=== PATIENT | female | born 1935 | race Caucasian/White ===

== ENCOUNTER 2022-08-29 11:19 | Inpatient (IN) | payer OTHER, MEDICARE ==
[2022-08-29 11:52] LABS: Absolute Lymphocytes (CBC) 20.9 K/uL (0.7-4.9); Lymphocytes % 59.2 % (15.3-44.8); MCV 98.2 fL (80-100); MPV 8.8 fL (7.6-11.3); RBC Red Blood Cell Count 4.68 M/uL (3.86-4.86)
[2022-08-29 11:56] LABS: Protime INR 1.15
[2022-08-29 12:23] LABS: Potassium 4.4 mmol/L (3.5-5.1)
[2022-08-29 12:27] LABS: Troponin High Sensitivity 197.1 pg/mL (<58.9)
[2022-08-29 12:33] LABS: Blood Morphology Comment NOT SEEN (NOT SEEN); Platelet Estimate ADEQ
[2022-08-29 12:41] LABS: SARS-CoV-2 Antigen Rapid Res Negative (Negative)
--- NOTE | 2022-08-29 13:09 | RAD REPORT ---
EXAM DESCRIPTION: CT - Head C Spine Cap Ja Cornejo - 08/29/2022 12:48 pm CLINICAL HISTORY: trauma, fall with head and facial trauma, neck pain, chest pain and abdomen pain COMPARISON: <Comparisons> TECHNIQUE: Axial [address] head images were obtained. Axial [address] cervical spine images were obtaine d with sagittal and coronal reconstruction images reviewed. During dynamic enhancement of 100mL non-i onic contrast, axial 5 mm images of the chest, abdomen and pelvis were obtained. Biphasic technique p erformed of the abdomen and pelvis. Oral contrast: None All CT scans are performed using dose optimization technique as appropriate and may include automated exposure control or mA/KV adjustment according to patient size. FINDINGS: No intracranial hemorrhage, mass or edema. No midline shift or abnormal fluid collection. Mild for age atrophy and chronic ischemic change. Ventricles are in proportion. Arterial and physiolo gic calcifications are present. Mastoid air cells are clear. No skullbase fracture seen. No skull fra cture. Facial bones, orbits and sinuses are separately detailed. Moderate size scalp hematoma seen l eft-side of the skull. No underlying bone injury. Advanced degenerative changes are present at the dens -C1 level. Transverse ligament posterior to the dens is thickened and partially mineralized. Several degenerative cysts are clustered at the base of the dens, largest 7 mm in size. The large cyst has a thinned posterior cortex at the base of the den s. A fracture is not confirmed. Anterior subluxation of C7 on T1 is present secondary to facet degene rative change. All cervical disc levels except C2-3 show significant loss in disc height. Prominent e ndplate spurs are present at C5-6 and C6-7. Multilevel facet joint degenerative change seen with mult ilevel bony foraminal stenosis. No other alignment abnormalities. Paraspinal hematoma is not seen. Th ere is some congestion and edema in the subcutaneous fat on the left. There are numerous bilateral ce rvical lymph nodes present more pronounced on the left. No malignant history is known for the patient . A pharyngeal origin mass is not seen. Adenopathy extends into the left base the neck and supraclavi cular region. Concerns for traumatic disc herniation or traumatic cord injury can be further addresse d with MR imaging. Small nodules are seen in the thyroid gland without of the mass in. CT chest shows no pneumothorax, pulmonary contusion or pleural fluid collection. No mediastinal hemat henry and the aorta and pulmonary arteries are unremarkable. No chest wall mass. No fracture of the john rnum seen. There are no displaced rib fracture is present and no nondisplaced rib fractures suspected . Patient has a large hiatal hernia approximately 50% of the stomach intrathoracic. Abnormal pathologic appearing right axillary lymph nodes are present. A small number of lymph nodes s een in the left axilla. No acute traumatic injury to the liver, spleen or pancreas. Splenomegaly is present. Gallbladder is a bsent. No abnormal degree of biliary tree dilatation. Fullness of the biliary tree is within range of normal for a post cholecystectomy patient. Left-sided parapelvic cysts are present. There is a large staghorn calculus filling and enlarging the right collecting system. There is mild dilatation throug hout the course of the right ureter without obstructing calculus seen. Espinosa catheter is present in t he urinary bladder which is partially filled. There is intermediate density material layering along t he dependent portion of the urinary bladder. This could be hemorrhagic material. Mass is possible but lesser in likelihood. No bladder wall thickening is suspected. No acute bowel finding seen. Moderate stool volume dilates the rectum to 7 cm. Advanced bony degenerative changes are present. Significant left convex lumbar scoliosis is present. An acute pelvic or vertebral body finding is not seen. No fracture of either proximal femur. No significant vascular finding. IMPRESSION: No hemorrhage or other acute intracranial finding identifiable. Moderate size scalp aaliyah sandra seen on the left. Facial bones, orbits and sinuses are separately detailed. Advanced degenerative changes are present involving the dens and adjacent structures but no fracture of the dens or C2 body confirmed. Overall prominent cervical spine degenerative change with no acute bone abnormality. Pathologic lymphadenopathy is present in the neck and bilateral axilla. No malignant history is known for this patient though findings are concerning for lymphoma or other neoplastic process. No acute traumatic injury to the chest. No acute traumatic injury to the abdomen or pelvis. Right-sided hydronephrosis is present without an obstructing calculus. There is a large right-sided staghorn calculus. Intermediate density material l pretty along the posterior or dependent portion of the urinary bladder. This could be hemorrhagic mate rial. A mass is unlikely but not entirely excluded. Espinosa catheter is in place. Advanced degenerative changes to the spine without acute finding seen. No pelvic or proximal femur fr acture.
--- NOTE | 2022-08-29 13:11 | RAD REPORT ---
EXAM DESCRIPTION: CT - Facial Bones W/ Mpr - 08/29/2022 12:47 pm CLINICAL HISTORY: Fall, face and left-sided skull injury. COMPARISON: CT trauma grams same date TECHNIQUE: Axial 2 millimeter thick images of the facial bones were obtained with sagittal and coron al reconstruction imaging. All CT scans are performed using dose optimization technique as appropriate and may include automated exposure control or mA/KV adjustment according to patient size. FINDINGS: Mandible is intact. Condyles are normally positioned. Mastoid air cells are clear with no skullbase fracture seen. No acute paranasal sinus finding. Globes and orbital contents are normal. Fa cial bone fracture is not seen. Left-sided scalp hematoma is present over the partially imaged. Under lying bone is intact. Pathologic lymphadenopathy is not seen further detailed on the CT trauma report . IMPRESSION: No facial bone fracture. Please see significant additional findings on CT trauma report.
[2022-08-29] MEDS ORDERED: NA CHLORIDE 0.9% 1,000 ML ONE (13:17)
--- NOTE | 2022-08-29 13:32 | ER ---
Nurse's Notes [facility] Name: Cesia Ayers Age: 86 yrs Sex: Female : 1935 Arrival Date: 08/29/2022 Time: 11:23 Bed 16 Private MD: Diagnosis: Rhabdomyolysis;Mechanical fall, scalp hematoma, facial contusions Presentation: 08/29 11:29 Chief complaint: EMS states: client had an unwitnessed fall last night at about 8pm and kc6 was just found 30min ago. no blood thinners, client denies LOC. Care prior to arrival: None. Mechanism of Injury: Fall from standing position. fell to the floor. Trauma event details: Injury occurred in the [facility], Injury occurred: at home. Injury occurred: August 28, 2022 Injury occurred at: 20:00. 11:29 Acuity: EDVIN 1 kc6 11:29 Method Of Arrival: EMS: [place] [facility] [place] 11:44 Ebola Screen: No symptoms or risks identified at this time. Initial Sepsis Screen: Does kc6 the patient meet any 2 criteria? Altered Mental Status. No. Patient's initial sepsis screen is negative. Does the patient have a suspected source of infection? No. Patient's initial sepsis screen is negative. Risk Assessment: Do you want to hurt yourself or someone else? Patient reports no desire to harm self or others. Onset of symptoms was August 28, 2022 at 20:00. 14:43 Coronavirus screen: At this time, the client does not indicate any symptoms associated kc6 with coronavirus-19. Trauma Activation: Alert Physician: ED Physician; Name: Dr. Mckeon; Notified At: ; Arrived At: Physician: General Surgeon; Name: ; Notified At: ; Arrived At: Physician: Radiology; Name: ; Notified At: ; Arrived At: Physician: Respiratory; Name: ; Notified At: ; Arrived At: Physician: Lab; Name: ; Notified At: ; Arrived At: Historical: - Allergies: 11:44 No Known Allergies; kc6 - Home Meds: 12:08 folic acid 1 mg oral tab [Active]; atorvastatin 40 mg oral tab [Active]; methimazole 5 kc6 mg oral tab [Active]; - PMHx: 12:06 Hyperthyroidism; Hypercholesterolemia; TIA; CLL; kc6 - PSHx: 12:06 Cholecystectomy; hysterectomy; back surgery; kc6 - Immunization history: Last tetanus immunization: unknown. - Social history:: Smoking status: Patient denies any tobacco usage or history of. Screenin:43 Abuse screen: Denies threats or abuse. Denies injuries from another. Tuberculosis kc6 screening: No symptoms or risk factors identified. 12:09 [facility] ED Fall Risk Assessment (Adult) History of falling in the last 3 months, kc6 including since admission Yes- single mechanical fall (1 pt) Confusion or Disorientation Yes (5 pts) Intoxicated or Sedated No (0 pts) Impaired Gait Yes (1 pt) Mobility Assist Device Used Yes (1 pt) Altered Elimination Yes (1 pt) Score/Fall Risk Level 3 or more points = High Risk Oriented to surroundings, Maintained a safe environment, Educated pt \T\ family on fall prevention, incl call for assistance when getting out of bed, Assessed \T\ reinforced patient's understanding of fall precautions, Provided non-skid footwear, Hourly rounding (assess needs \T\ fall precautionary measures) done, Used ambulatory aids as needed (educated on \T\ assisted with), Used gait belt as appropriate Implemented a Fall Risk Plan of Care, Apply high fall risk patient identification: yellow non skid footwear/ fall signage, Placed fall mat w/ non beveled edge next to bed, Activated bed/chair alarm, Remained with patient while ambulating, Utilized family, sitter, or virtual economic specialist as indicated. Nutritional screening: No deficits noted. Primary Survey: 11:37 NO uncontrolled hemorrhage observed. Breathing/Chest: Spontaneous respiratory effort, kc6 equal unlabored respirations, breath sounds clear bilaterally, regular pattern, symmetrical chest rise and fall. Respiratory effort: spontaneous, unlabored, Breath sounds: clear, bilaterally. Respiratory pattern: regular, Chest inspection: symmetrical rise and fall of the chest. Circulation: No external hemorrhage present. Regular and strong central pulse, skin warm/dry/normal color. Hemorrhage: No external hemorrhage noted. Pulses: Skin color: pink, Skin temperature: warm, dry, Cardiac rhythm: sinus rhythm Heart tones present. Disability Pupils are equal, round, reactive to light and accommodation. Client is alert. Client responds to verbal stimuli. Client reponds to painful stimuli. Exposure/Environment: All clothing and personal items were removed. There is no evidence of uncontrolled external bleeding. No obvious injuries are noted at this time. A warming method has been applied: A warm blanket has been provided to the patient. 12:15 Reassessment Alertness and Airway: Awake and alert. The airway is patent. Airway Patent kc6 Breathing: Spontaneous respiratory effort, equal unlabored respirations, breath sounds clear bilaterally, regular pattern with symmetrical chest rise and fall. Respiratory effort Spontaneous Unlabored Breath sounds Clear Respiratory pattern Regular Chest inspection Symmetrical Circulation: No external hemorrhage noted. Regular and strong central pulse, skin warm/dry/normal color. Heart rhythm Sinus rhythm Heart tones Present Color [place] Temperature Warm Dry Disability: Pupils Pupils are equal, round, reactive to light and accomodation. Alert Verbal stimuli Painful stimuli. Secondary Survey: 11:40 HEENT: Face Other bruising and redness noted to the left face, chin, and neck. Nose: kc6 dried blood noted to the left nare.. Gastrointestinal: No deficits noted. : No signs and/or symptoms were reported regarding the genitourinary system. Musculoskeletal: No signs and/or symptoms reported regarding the musculoskeletal system. Assessment: 11:32 General: Appears in no apparent distress. comfortable, Behavior is calm, cooperative, kc6 appropriate for age. General: Smells of stale urine. Pain: Denies pain. Neuro: Goncalves Agitation-Sedation Scale (RASS): 0 - Alert and Calm Level of Consciousness is awake, alert, obeys commands, Oriented to person, place. EENT: Sclera/Cornea are reddened in outer aspect of conjuctiva of right eye, inner aspect of conjuctiva of right eye, outer aspect of conjuctiva of left eye and inner aspect of conjunctiva of left eye Nares dried blood noted to the left nare.. Cardiovascular: Heart tones S1 S2 present Capillary refill < 3 seconds. Respiratory: Airway is patent Trachea midline Respiratory effort is even, unlabored, Respiratory pattern is regular, symmetrical, Breath sounds are clear bilaterally. GI: No signs and/or symptoms were reported involving the gastrointestinal system. : No signs and/or symptoms were reported regarding the genitourinary system. Derm:. Derm: Skin has skin tears on left side of the face, chin, and neck as well as the BARRIE knees. Skin is dry, Skin is normal, Skin temperature is warm. Musculoskeletal: No signs and/or symptoms reported regarding the musculoskeletal system. Circulation, motion, and sensation intact. Capillary refill < 3 seconds, Range of motion: intact in all extremities. 11:47 Reassessment: cleansed patient of urine soaked clothes and placed into a clean gown and ss brief. Side rails up x 2. Pt tolerated well. Awaiting CT. 12:35 Reassessment: Patient appears in no apparent distress at this time. No changes from kc6 previously documented assessment. Patient and/or family updated on plan of care and expected duration. Pain level reassessed. client is alert and oriented to person and place but not time and situation. respiration even and unlabored. skin is warm, dry, and pink. Patient denies pain at this time. 13:35 Reassessment: Patient appears in no apparent distress at this time. No changes from kc6 previously documented assessment. Patient and/or family updated on plan of care and expected duration. Pain level reassessed. client is alert and oriented to person and place but situation and time. respirations even and unlabored. skin is warm, dry, and pink. Patient denies pain at this time. 14:27 Reassessment: Turner Ayers(son) [phone]. jd3 14:35 Reassessment: Patient appears in no apparent distress at this time. No changes from kc6 previously documented assessment. Patient and/or family updated on plan of care and expected duration. Pain level reassessed. 15:35 Reassessment: Patient appears in no apparent distress at this time. No changes from kc6 previously documented assessment. Patient and/or family updated on plan of care and expected duration. Pain level reassessed. Reassessment: Patient appears in no apparent distress at this time. No changes from previously documented assessment. Patient and/or family updated on plan of care and expected duration. Pain level reassessed. 16:35 Reassessment: Patient appears in no apparent distress at this time. No changes from kc6 previously documented assessment. Patient and/or family updated on plan of care and expected duration. Pain level reassessed. 17:35 Reassessment: Patient appears in no apparent distress at this time. No changes from kc6 previously documented assessment. Patient and/or family updated on plan of care and expected duration. Pain level reassessed. 17:36 Reassessment: attempted to call report to second floor. stated the nurse is passing kc6 meds and will call me back. 18:09 Reassessment: attempted to call report to second floor after missed call. stated the kc nurse is passing meds and will have to call me back. Vital Signs: 11:42 BP 143 / 65; Pulse 92; Resp 18 S; Temp 98.2(O); Pulse Ox 96% on R/A; Weight 54.43 kg kc6 (R); Height 4 ft. 11 in. (149.86 cm) (R); Pain 0/10; 12:04 Weight 54.43 kg; Height 4 ft. 11 in. (149.86 cm); eb 14:15 BP 118 / 85; Pulse 90; Resp 19 S; Pulse Ox 94% on R/A; Pain 0/10; kc6 16:56 Pulse 86; Resp 18 S; Pulse Ox 100% on R/A; Pain 0/10; kc6 12:04 Body Mass Index 24.24 (54.43 kg, 149.86 cm) eb Novelty Coma Score: 11:42 Eye Response: spontaneous(4). Verbal Response: confused(4). Motor Response: obeys kc6 commands(6). Total: 14. Trauma Score (Adult): 11:42 Eye Response: spontaneous(1); Verbal Response: confused(1); Motor Response: obeys kc6 commands(2); Systolic BP: > 89 mm Hg(4); Respiratory Rate: 10 to 29 per min(4); Novelty Score: 14; Trauma Score: 12 ED Course: 11:23 Patient arrived in ED. eb 11:23 Edwin Mckeon MD is Attending Physician. sp3 11:28 Jeanette Zavaleta, RN is Primary Nurse. kc6 11:32 Triage completed. kc6 11:44 Arm band placed on. kc6 11:45 Patient has correct armband on for positive identification. Placed in gown. Bed in low kc6 position. Call light in reach. Side rails up X2. 11:45 Patient maintains SpO2 saturation greater than 95% on room air. kc6 11:45 Thermoregulation: warm blanket given to patient. kc6 12:31 SARS RAPID Sent. kc6 12:31 Espinosa cath inserted, using sterile technique, 16 Fr., by me, balloon inflated, to kc6 gravity drainage, clamped. Patient tolerated well. 12:49 CT Facial Bones W/O Con In Process Unspecified. EDMS 12:50 Head C Spine Cap W Con In Process Unspecified. EDMS 13:30 Cole Barba MD is Hospitalizing Provider. sp3 14:42 No provider procedures requiring assistance completed. Patient admitted, IV remains in kc6 place. Administered Medications: 13:40 Drug: NS 0.9% 1000 ml Route: IV; Rate: 1 bolus; Site: right antecubital; kc6 16:39 Follow up: Response: No adverse reaction; IV Status: Completed infusion; IV Intake: kc6 1000ml Medication: 11:47 VIS not applicable for this client. ss Intake: 16:39 IV: 1000ml; Total: 1000ml. kc6 Outcome: 13:31 Decision to Hospitalize by Provider. sp3 14:42 Condition: stable kc6 14:42 Instructed on the need for admit. 14:43 Patient's length of stay in the Emergency Department was greater than 2 hours. due to kc6 results and admission.Patient's length of stay extended due to 17:37 Admitted to Med/surg accompanied by tech, via stretcher, room 203, with chart, Report kc6 called to ÁNGEL Lea 19:07 Patient left the ED. jb4 Signatures: Dispatcher [employer] EDMS Cathleen Zamora RN RN ss Bryson, James, RN RN jb4 Vinay Ferris RN RN Kary Vegas Setul, MD MD sp3 Jeanette Zavaleta RN RN kc6 Corrections: (The following items were deleted from the chart) 14:14 11:42 BP 143 / 65; Pulse 92bpm; Resp 18bpm; Spontaneous; Pulse Ox 96% RA; Pain 0/10; [id number] 16:56 11:37 Reassessment Alertness and Airway: Awake and alert. The airway is patent. Airway kc6 Patent Breathing: Spontaneous respiratory effort, equal unlabored respirations, breath sounds clear bilaterally, regular pattern with symmetrical chest rise and fall. Respiratory effort Spontaneous Unlabored Breath sounds Clear Respiratory pattern Regular Chest inspection Symmetrical Circulation: No external hemorrhage noted. Regular and strong central pulse, skin warm/dry/normal color. Heart rhythm Sinus rhythm Heart tones Present Color [place] Temperature Warm Dry Disability: Pupils Pupils are equal, round, reactive to light and accomodation. Alert Verbal stimuli Painful stimuli kc6 18:54 17:37 Admitted to Med/surg accompanied by tech, via stretcher, room 203, with chart, [id number]
--- NOTE | 2022-08-29 13:32 | EDPHYS ---
Physician Documentation [facility] Name: Cesia Ayers Age: 86 yrs Sex: Female : 1935 Arrival Date: 08/29/2022 Time: 11:23 Bed 16 Private MD: ED Physician Edwin Mckeon HPI: 08/29 13:20 This 86 yrs old Female presents to ER via EMS with complaints of Fall Injury. sp3 13:20 86-year-old female with history of hyperlipidemia, CLL, TIA not on any cancer treatment sp3 currently presents to the ED via EMS for ground-level fall and being dropped on the ground since 8 PM yesterday. Patient was found by her son who activated EMS patient was brought to the ER. Patient has facial injuries he also laid on her face overnight. She denies any headache, back pain, neck pain, chest pain, shortness of breath, abdominal pain, any other pain symptoms at this time. Vital signs were normal for EMS.. Historical: - Allergies: 11:44 No Known Allergies; kc6 - Home Meds: 12:08 folic acid 1 mg oral tab [Active]; atorvastatin 40 mg oral tab [Active]; methimazole 5 kc6 mg oral tab [Active]; - PMHx: 12:06 Hyperthyroidism; Hypercholesterolemia; TIA; CLL; kc6 - PSHx: 12:06 Cholecystectomy; hysterectomy; back surgery; kc6 - Immunization history: Last tetanus immunization: unknown. - Social history:: Smoking status: Patient denies any tobacco usage or history of. ROS: 13:22 Eyes: Negative for injury, pain, redness, and discharge, Neck: Negative for injury, sp3 pain, and swelling, Cardiovascular: Negative for chest pain, palpitations, and edema, Respiratory: Negative for shortness of breath, cough, wheezing, and pleuritic chest pain, Abdomen/GI: Negative for abdominal pain, nausea, vomiting, diarrhea, and constipation, Back: Negative for injury and pain, Skin: Negative for injury, rash, and discoloration, Neuro: Negative for headache, weakness, numbness, tingling, and seizure, Psych: Negative for depression, anxiety, suicide ideation, homicidal ideation, and hallucinations, Allergy/Immunology: Negative for hives, rash, and allergies, Endocrine: Negative for neck swelling, polydipsia, polyuria, polyphagia, and marked weight changes. 13:22 All other systems are negative. Exam: 13:23 Neck: Trachea midline, no thyromegaly or masses palpated, and no cervical sp3 lymphadenopathy. Supple, full range of motion without nuchal rigidity, or vertebral point tenderness. No Meningismus. Chest/axilla: Normal chest wall appearance and motion. Nontender with no deformity. No lesions are appreciated. Cardiovascular: Regular rate and rhythm with a normal S1 and S2. No gallops, murmurs, or rubs. Normal PMI, no JVD. No pulse deficits. Respiratory: Lungs have equal breath sounds bilaterally, clear to auscultation and percussion. No rales, rhonchi or wheezes noted. No increased work of breathing, no retractions or nasal flaring. Abdomen/GI: Soft, non-tender, with normal bowel sounds. No distension or tympany. No guarding or rebound. No evidence of tenderness throughout. Back: No spinal tenderness. No costovertebral tenderness. Full range of motion. Skin: Warm, dry with normal turgor. Normal color with no rashes, no lesions, and no evidence of cellulitis. Neuro: Awake and alert, GCS 15, oriented to person, place, time, and situation. Cranial nerves II-XII grossly intact. Motor strength 5/5 in all extremities. Sensory grossly intact. Cerebellar exam normal. Normal gait. Psych: Awake, alert, with orientation to person, place and time. Behavior, mood, and affect are within normal limits. 13:23 Head/face: Patient has ecchymoses on the left side of her face, nose, forehead. No neck tenderness noted. Vision is normal and extraocular movements are intact. There is no trauma or blood in the anterior chamber of the eyes.. 13:24 ECG was reviewed by the Attending Physician. EKG demonstrates normal sinus rhythm at 88 sp3 bpm with left bundle branch block, with no concordance, otherwise normal EKG. Vital Signs: 11:42 BP 143 / 65; Pulse 92; Resp 18 S; Temp 98.2(O); Pulse Ox 96% on R/A; Weight 54.43 kg kc6 (R); Height 4 ft. 11 in. (149.86 cm) (R); Pain 0/10; 12:04 Weight 54.43 kg; Height 4 ft. 11 in. (149.86 cm); eb 14:15 BP 118 / 85; Pulse 90; Resp 19 S; Pulse Ox 94% on R/A; Pain 0/10; kc6 16:56 Pulse 86; Resp 18 S; Pulse Ox 100% on R/A; Pain 0/10; kc6 12:04 Body Mass Index 24.24 (54.43 kg, 149.86 cm) eb Hiro Coma Score: 11:42 Eye Response: spontaneous(4). Verbal Response: confused(4). Motor Response: obeys kc6 commands(6). Total: 14. Trauma Score (Adult): 11:42 Eye Response: spontaneous(1); Verbal Response: confused(1); Motor Response: obeys kc6 commands(2); Systolic BP: > 89 mm Hg(4); Respiratory Rate: 10 to 29 per min(4); [place] Score: 14; Trauma Score: 12 MDM: 11:23 Patient medically screened. sp3 13:24 Data reviewed: vital signs, nurses notes, lab test result(s), EKG, radiologic studies. sp3 13:25 ED course: 86-year-old female with ground-level mechanical fall and overnight sp3 entrapment onto the floor. Trauma studies are pending including CT scan of the head, C-spine, facial bones, chest/abdomen/pelvis. Laboratory values [id number] a rhabdomyolysis with a CPK value of 1982 and troponin of 197. Patient has an elevated WBC count but is stable given her history of CLL. We will start hydration and admit patient for rhabdomyolysis and general support for her injuries. Likely discharge in next 24 to 48 hours once she is ambulating again. Creatinine values are normal. We will transfer patient if anything significant from a trauma standpoint however I do not anticipate significant injury on her pending CT scans.. 08/29 11:25 Order name: Basic Metabolic Panel; Complete Time: 13:07 sp3 08/29 11:25 Order name: CBC with Diff; Complete Time: 13: sp3 08/29 11:25 Order name: Type And Screen; Complete Time: 13: sp3 08/29 11:25 Order name: PT-INR; Complete Time: 11:59 sp3 08/29 11:25 Order name: Lactate w/ 2H reflex if indic.; Complete Time: 13:07 sp3 08/29 11:25 Order name: CK; Complete Time: 13:07 3 08/29 11:25 Order name: Troponin High Sensitivity; Complete Time: 13:07 3 08/29 12:04 Order name: SARS RAPID; Complete Time: 13:07 08/29 12:33 Order name: Manual Differential; Complete Time: 13:07 [facility]SD 08/29 12:40 Order name: ABO/RH no charge; Complete Time: 13:07 EDSD 08/29 13:40 Order name: Urine Culture [facility] 08/29 13:40 Order name: Urine Microscopic Only [facility] 08/29 13:40 Order name: Urine Dipstick-Ancillary [facility] 08/29 17:19 Order name: Creatine Phosphokinase [facility] 08/29 11:25 Order name: CT Traumagram (Head C Spine CAP W Con) [facility] 08/29 11:25 Order name: Labs collected and sent; Complete Time: 12:04 [facility] 08/29 11:25 Order name: CT Facial Bones W/O Con; Complete Time: 13:27 [facility] 08/29 11:29 Order name: Head C Spine Cap W Con; Complete Time: 13:27 [facility] 08/29 17:19 Order name: CONS Physician Consult [facility] 08/29 17:19 Order name: Heart Healthy [facility] 08/29 17:19 Order name: Echo with Doppler [facility] 08/29 17:19 Order name: Creatine Phosphokinase [facility] 08/29 17:19 Order name: Creatine Phosphokinase [facility] 08/29 17:19 Order name: Creatine Phosphokinase [facility] 08/29 17:19 Order name: Creatine Phosphokinase [facility] 08/29 17:19 Order name: Lipid Profile [facility] 08/29 17:19 Order name: Lipid Profile [facility] 08/29 17:19 Order name: Carotid Artery Bilateral [facility] 08/29 17:19 Order name: Carotid Artery Bilateral [facility] 08/29 11:25 Order name: EKG - Nurse/Tech; Complete Time: 12:04 3 08/29 12:05 Order name: Espinosa; Complete Time: 12:31 kc6 08/29 13:40 Order name: Urine Dipstick-Ancillary (obtain specimen); Complete Time: 13:40 kc6 Administered Medications: 13:40 Drug: NS 0.9% 1000 ml Route: IV; Rate: 1 bolus; Site: right antecubital; kc6 16:39 Follow up: Response: No adverse reaction; IV Status: Completed infusion; IV Intake: kc6 1000ml Disposition Summary: 08/29/22 13:31 Hospitalization Ordered Hospitalization Status: Observation sp3 Provider: Cole Barba sp3 Condition: Stable sp3 Problem: new sp3 Symptoms: are unchanged sp3 Bed/Room Type: Standard sp3 Location: Telemetry/MedSurg (Inpatient)(08/29/22 17:24) Room Assignment: [facility](08/29/22 17:24) Diagnosis - Rhabdomyolysis sp3 - Mechanical fall, scalp hematoma, facial contusions sp3 Forms: - Medication Reconciliation Form sp3 - SBAR form sp3 Signatures: Dispatcher [employer] EDCathleen Bourne RN RN Edwin Mckeon MD MD sp3 Jeanette Zavaleta RN RN kc6 Corrections: (The following items were deleted from the chart) 17:24 13:31 Telemetry/MedSurg (observation) sp3 17:24 13:31 sp3 ss
[2022-08-29 13:40] LABS: Urine Blood 3+ (Negative); Urine Glucose Negative (Negative); Urine Protein 3+ (Negative); Urine pH 8.5 (5.0-7.0)
[2022-08-29 14:00] LABS: Urine Bacteria <20 /HPF (<20); Urine Mucus Slight /HPF (None Seen); Urine RBC >50 /HPF (None Seen); Urine WBC Clump Few /HPF (None Seen)
[2022-08-29] MEDS ORDERED: D5W 1,000 ML with NA BICARB 8.4% 100 MEQ IV SCH ×2 (18:00)
[2022-08-29 20:44] VITALS: BMI 24.2
[2022-08-29] MEDS ORDERED: CEFTRIAXONE 1000 MG/VIAL ONE (22:37)
[2022-08-29] MEDS: NA CHLORIDE 0.9% 1,000 ML IV SCH (22:47)
[2022-08-29] MEDS: CEFTRIAXONE 1,000 MG in NA CHLORIDE 0.9% 50 ML IVPB SCH (22:48)
[2022-08-29] MEDS: ENOXAPARIN 60 MG/0.6 ML SQ SCH (22:59)
[2022-08-29] MEDS: METOPROLOL TAR 50 MG TAB PO SCH (23:00)
--- NOTE | 2022-08-30 06:53 | P.HP ---
Certification for Inpatient Patient admitted to: Inpatient With expected LOS: >2 Midnights Patient will require the following post-hospital care: None Practitioner: I am a practitioner with admitting privileges, knowledge of patient current condition, hospital course, and medical plan of care. Services: Services provided to patient in accordance with Admission requirements found in Title 42 Section 412.3 of the Code of Federal Regulations Patient History Date of Service: 08/29/22 Reason for admission: Syncope; rhabdomyolysis; status post fall with facial bruising History of Present Illness: Patient is an 86-year-old female who came to the hospital after falling. Patient had a friend come by her home at around room 4:00 p.m. on Tuesday but she did not answer the door. the next morning she was scheduled to get her nails done but she was not picking up the phone. This was around 9:00 a.m.. Her son went by the house and found her on the ground. She was laying face down. She appeared obtunded. EMS was called and they brought her into the hospital. Patient had a lot of facial bruising. Extensive facial bruising to the left side of her face as well as bilateral knee bruising and some mild swelling. Patient has pretty good range of motion in her hips. She moves her arms and legs appropriately. 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 She did not have a pronator drift. She does follow commands fairly well. Her son is stating that her mentation is improved from when she 1st got in the hospital. In the emergency room she had extensive workup done including CT imaging and there was no evidence of fractures of the extremity. She did have some lymphadenopathy suggestive of lymphoma. She does have a history of CLL. The family believes they have been told that this was secondary to her CLL. She was also found to have a staghorn calculus. She has right-sided hydronephrosis. Patient also had elevated CPK. Will hydrate. Will treat with antibiotics for presumed urinary tract infection. We will also consult Urology and get a renal ultrasound. She has no flank tenderness at this time. Patient will be admitted to the hospital for further treatment. Allergies NKDA Allergy (Uncoded 09/19/15 17:35) Unknown Home Medications: Docusate Sodium [Colace] 50 mg PO DAILY 04/24/14 Hydrocodone 10/APAP 325 [[place] 10/325*] 1 tab PO Q4HP PRN 04/24/14 Pravastatin Sodium [Pravachol] 20 mg PO BEDTIME 04/24/14 Vits A,C,E/Lutein/Minerals [Ocuvite with Lutein Tablet] 1 each PO DAILY 04/24/14 methIMAzole [Tapazole] 0.5 tab PO DAILY 04/24/14 methocarbamoL [Robaxin*] 500 mg PO TID PRN 04/24/14 Levofloxacin [Levaquin] 500 mg PO DAILY #7 tablet 04/25/14 metroNIDAZOLE [Flagyl*] 500 mg PO Q8H #21 tablet 04/25/14 - Past Medical/Surgical History Has patient received pneumonia vaccine in the past: No Diabetic: No -: Sciatica -: CLL -: Lumpectomy Right Breast -: Cholecystectomy -: Hysterectomy -: Left Wrist Surgery -: BARRIE knee replacement - Family History Father Family History: Reviewed- Non-Contributory - Social History Smoking Status: Former smoker Alcohol use: Yes Caffeine use: Yes Place of Residence: Home Review of Systems 10-point ROS is otherwise unremarkable Physical Examination - Vital Signs Temperature: 98.1 F Blood Pressure: 145/64 Pulse: 84 Respirations: 19 Pulse Ox (%): 96 - Physical Exam General: Alert, In no apparent distress, Oriented x2, Confused HEENT: Atraumatic, PERRLA, Mucous membr. moist/pink, EOMI, Sclerae nonicteric Neck: Supple, 2+ carotid pulse no bruit, No LAD, Without JVD or thyroid abnormality Respiratory: Clear to auscultation bilaterally, Normal air movement Cardiovascular: Regular rate/rhythm, Normal S1 S2, No murmurs Gastrointestinal: Normal bowel sounds, Soft and benign, Non-distended, No tenderness Musculoskeletal: No clubbing, No swelling, No tenderness Integumentary: No rashes Neurological: Normal gait, Normal speech, Normal strength at 5/5 x4 extr, Normal tone, Sensation intact, Cranial nerves 3-12 intact, Normal affect Lymphatics: No axilla or inguinal lymphadenopathy - Studies Laboratory Data (last 24 hrs) 08/29/22 11:41: PT 12.6 H, INR 1.15 08/29/22 11:41: WBC 35.40 H*, Hgb 14.8, Hct 46.0 H, Plt Count 192 08/29/22 11:41: Sodium 142, Potassium 4.4, BUN 33 H, Creatinine 0.72, Glucose 143 H Assessment & Plan - Problems (Diagnosis) (1) Rhabdomyolysis Current Visit: Yes Status: Acute (2) CLL (chronic lymphocytic leukemia) Current Visit: Yes Status: Acute (3) Elevated troponin Current Visit: Yes Status: Acute (4) Facial contusion Current Visit: Yes Status: Acute (5) Bilateral knee swelling Current Visit: Yes Status: Acute (6) Staghorn calculus Current Visit: Yes Status: Acute (7) Hydronephrosis Current Visit: Yes Status: Acute - Plan Plan: 1. Gentle hydration 2. IV antibiotics 3. Renal ultrasound 4. Echo 5. Cardiology consult 6. Urology consultation 7. monitor CPK level 8. follow troponin trend 9. physical therapy evaluation 10. MRI of the brain 11. Carotid Doppler 12. GI and DVT prophylaxis Discharge Plan: Home Plan to discharge in: Greater than 2 days - Advance Directives Does patient have a Living Will: No Does patient have a Durable POA for Healthcare: Yes - Code Status/Comfort Care Code Status Assessed: Yes Code Status: Full Code Critical Care: No Time Spent Managing PTS Care (In Minutes): 45
[2022-08-30 07:18] LABS: Absolute Lymphocytes (CBC) 18.5 K/uL (0.7-4.9); Hematocrit 37.4 % (36.0-45.0); Lymphocytes % 63.9 % (15.3-44.8); MCV 98.9 fL (80-100); MPV 8.6 fL (7.6-11.3); RBC Red Blood Cell Count 3.78 M/uL (3.86-4.86)
--- NOTE | 2022-08-30 07:20 | RAD REPORT ---
EXAM DESCRIPTION: - CP - 08/29/2022 9:49 pm CLINICAL HISTORY: Syncope COMPARISON: Thyroid Para Parotid Gland dated 04/25/2017 TECHNIQUE: Real-time sonographic evaluation of bilateral carotid and vertebral systems was performed . Thibodeaux scale and Doppler interrogation were performed with waveform tracing bilaterally. FINDINGS: Normal high resistance waveforms are noted in both external carotid arteries. The common c arotid arteries and internal carotid arteries show normal low resistance waveforms. Bilateral common carotid wall intimal thickening seen. Noncalcified plaquing changes are identifiable in each carotid bulb without visual evidence for significant luminal narrowing. No dissection is see n. Left vertebral artery was not well visualized. Peak systolic and end diastolic velocity values and the ICA/CCA ratios are in the non-hemodynamically significant range. Antegrade flow seen in both vertebral arteries. Velocity values and ratios were recorded and are retained in the patient's imaging records. IMPRESSION: Mild bilateral carotid bulb noncalcified plaquing changes. No evidence of a hemodynamically significant stenosis.
[2022-08-30 07:39] LABS: Albumin 2.8 g/dL (3.4-5.0); Bilirubin Total 1.4 mg/dL (0.2-1.0); Protein, Total 5.7 g/dL (6.4-8.2)
[2022-08-30 07:44] LABS: Potassium 3.6 mmol/L (3.5-5.1)
[2022-08-30] MEDS ORDERED: INFLUENZA VACCINE (for 6+ mo) 0.5 ML DOSE IMVAC ONE (08:00)
[2022-08-30] MEDS ORDERED: PNEUMOCOCCAL VACCINE 0.5 ML IMVAC ONE (08:00)
[2022-08-30 08:39] LABS: Platelet Estimate ADEQ; Smudge Cells 2+
[2022-08-30 08:40] LABS: Blood Morphology Comment NOT SEEN (NOT SEEN)
[2022-08-30] MEDS ORDERED: D5 0.9 NS 1,000 ML IV ONE (08:42)
[2022-08-30] MEDS ORDERED: CEFTRIAXONE 1000 MG/VIAL ONE ×2 (08:42→20:14)
[2022-08-30] MEDS: CEFTRIAXONE 1,000 MG in NA CHLORIDE 0.9% 50 ML IVPB SCH ×2 (08:44→22:03)
[2022-08-30] MEDS: NA CHLORIDE 0.9% 1,000 ML IV SCH ×2 (08:44→22:03)
[2022-08-30] MEDS: ASPIRIN EC 81 MG TAB PO SCH (08:45)
[2022-08-30] MEDS: ENOXAPARIN 60 MG/0.6 ML SQ SCH (08:45)
[2022-08-30] MEDS: METOPROLOL TAR 50 MG TAB PO SCH (08:45)
--- NOTE | 2022-08-30 10:01 | RAD REPORT ---
EXAM DESCRIPTION: MRI - Brain Wo Cont - 08/30/2022 9:50 am CLINICAL HISTORY: Syncope; r/o CVA COMPARISON: Head C Spine Cap W Con dated 08/29/2022 TECHNIQUE: Sagittal T1-weighted images were obtained along with axial PD, heavily T2-weighted and T2 -FLAIR images. Axial DWI and ADC mapping sequences were also obtained along with coronal heavily T2-w eighted images. FINDINGS: Diffusion imaging shows no acute infarction in the cerebral or cerebellar hemispheres. Of the medulla pontine junction slightly left of midline there is a punctate 1 mm area increased signal on the diffusion weighted sequence. There is a corresponding area of diminished signal on the ADC map ping sequence. This would suggest a punctate acute/ subacute nonhemorrhagic infarction. No definitive correlate on the T2/IR sequencing. No other suspicion for an acute infarction. The patient has atrop hy with ventricles in proportion. Chronic ischemic changes are scattered in the cerebral white matter . There is no edema or shift of midline structures. No extra-axial fluid collections. Thibodeaux-matter/whi te matter junction is preserved. Signal voids are seen as a normal finding in the major intracranial vessels. No globe or orbital content acute finding. Mastoid air cells and paranasal sinuses are clear. IMPRESSION: Punctate 1 mm sized brainstem nonhemorrhagic acute/ subacute CVA just left of midline at the medulla reddy junction. Moderate atrophy with ventricles in proportion. Mild to moderate for age scattered chronic ischemic c hange in the cerebral white matter.
[2022-08-30 11:03] LABS: Troponin High Sensitivity 239.5 pg/mL (<58.9)
--- NOTE | 2022-08-30 14:40 | RAD REPORT ---
EXAM DESCRIPTION: US - Renal Ultrasound-Complete - 08/30/2022 2:25 pm CLINICAL HISTORY: Abdominal pain COMPARISON: March 2022 FINDINGS: The right kidney measures 9 cm with a normal echotexture. 1.8 calculus unchanged. No hydro nephrosis The left kidney measures 9 cm with a normal echotexture. No significant change in either the parapelv ic cysts or mild left hydronephrosis Hydronephrosis is not seen. Espinosa catheter within a collapsed bladder. IMPRESSION: 1.8 centimeter nonobstructing right renal calculus Left renal parapelvic cysts or mild hydronephrosis unchanged
--- NOTE | 2022-08-30 14:48 | ECHO ---
HEIGHT: 4 ft 11 in WEIGHT: 120 lb 0 oz DATE OF STUDY: 08/30/[address]: Cole Barba MD 2-DIMENSIONAL: YES M.MODE: YES DOPPLER: YES COLOR FLOW: YES TDS: NO PORTABLE: YES DEFINITY: NO BUBBLE STUDY: NO DIAGNOSIS: CHEST PAIN, RULE OUT ACS CARDIAC HISTORY: CATHERIZATION: NO SURGERY: NO PROSTHETIC VALVE: NO PACEMAKER: NO MEASUREMENTS (cm) DIASTOLIC (NORMALS) SYSTOLIC (NORMALS) IVSd 1.0 (0.6-1.2) LA Diam 2.4 (1.9-4.0) LVEF 60-65% LVIDd 3.4 (3.5-5.7) LVIDs 2.1 (2.0-3.5) %FS 38% LVPWd 1.0 (0.6-1.2) Ao Diam 2.2 (2.0-3.7) 2 DIMENSIONAL ASSESSMENT: RIGHT ATRIUM: NORMAL LEFT ATRIUM: NORMAL RIGHT VENTRICLE: NORMAL LEFT VENTRICLE: NORMAL TRICUSPID VALVE: MITRAL VALVE: NORMAL PULMONIC VALVE: NORMAL AORTIC VALVE: PERICARDIAL EFFUSION: NONE AORTIC ROOT: NORMAL LEFT VENTRICULAR WALL MOTION: NORMAL DOPPLER/COLOR FLOW: SEE BELOW COMMENTS: 1. NORMAL LEFT VENTRICULAR EJECTION FRACTION 60-65% WITH NORMAL WALL MOTION. 2. MILD DIASTOLIC DYSFUNCTION. 3. MILD TRICUSPID REGURGITATION. 4. MILD TO MODERATE AORTIC REGURGITATION. TECHNOLOGIST: Des DIEHL
--- NOTE | 2022-08-30 17:43 | P.PN ---
Subjective Date of Service: 08/30/22 Chief Complaint: Syncope; rhabdomyolysis; status post fall with facial bruising No acute events overnight. No recurrent episodes of syncope. She appears slightly confused, but is answering questions appropriately. Review of Systems 10-point ROS is otherwise unremarkable Neurological: Confusion Physical Examination - Vital Signs Temperature: 97.9 F Blood Pressure: 141/73 Pulse: 71 Respirations: 14 Pulse Ox (%): 96 - Physical Exam General: Alert, Oriented x2 HEENT: Mucous membr. moist/pink, Other (facial contusion), EOMI, Sclerae nonicteric Neck: JVD not distended Respiratory: Clear to auscultation bilaterally, Normal air movement Cardiovascular: Normal pulses, Regular rate/rhythm, Normal S1 S2, No gallops, No rubs, No murmurs Gastrointestinal: Normal bowel sounds, Soft and benign, Non-distended, No tenderness, No rebound, No guarding Musculoskeletal: No clubbing Integumentary: No rashes Neurological: Normal speech, Normal affect Assessment And Plan - Plan # Acute Toxic Metabolic Encephalopathy likely secondary to Urinary Tract Infection - Evaluation thus far: - Labs = Na+ 143, Ca2+ 10.0, CO2 23, Glucose 95, BUN 28, TSH pending - Urinalysis = 3+ blood, 3+ leukocyte esterase, >50 RBCs, >50 WBCs, 3+ protein - CT head = "no hemorrhage or other acute intracranial finding identifiable." - MRI brain = pending - Management plan: - Follow-up above tests - Consulted Neurology - recommendations appreciated - Continue ceftriaxone # Suspected Type II Non-ST Segment Elevation Myocardial Infarction (Demand Ischemia) - Evaluation thus far: - EKG: reportedly no STEMI criteria, trend - Serial troponin: 197.1 -> 241.0 -> 239.5 - Transthoracic echocardiogram = pending - Management plan: - Consult Cardiology - recommendations appreciated - Continue aspirin + metoprolol - Start atorvastatin - Consider starting SANDY-inhibitor/ARB if tolerated # Traumatic Ground-Level Fall with Left Scalp Hematoma # Rhabdomyolysis # Facial Contusion - CK trend: 197.1 -> 241.0 -> 239.5 - CT facial bones = "no facial bone fracture." - CT head/cervical spine/chest/abdomen/pelvis = "no hemorrhage or other acute intracranial finding identifiable. Moderate size scalp hematoma seen on the left. Facial bones, orbits and sinuses are separately detailed. Advanced degenerative changes are present involving the dens and adjacent structures but no fracture of the dens or C2 body confirmed. Overall prominent cervical spine degenerative change with no acute bone abnormality. Pathologic lymphadenopathy is present in the neck and bilateral axilla. No malignant history is known for this patient though findings are concerning for lymphoma or other neoplastic process. No acute traumatic injury to the chest. No acute traumatic injury to the abdomen or pelvis. Right-sided hydronephrosis is present without an obstructing calculus. There is a large right-sided staghorn calculus. Intermedi ate density material layers along the posterior or dependent portion of the urinary bladder. This could be hemorrhagic material. A mass is unlikely but not entirely excluded. Espinosa catheter is in place. Advanced degenerative changes to the spine without acute finding seen. No pelvic or proximal femur fracture." - Continue Normal Saline @ 100 mL/hr # Right-Sided Hydronephrosis with Large Right-Sided Staghorn Calculus - Urology consulted - recommendations appreciated - Renal ultrasound pending # Chronic Lymphocytic Leukemia # Neck and Bilateral Axillary Lymphadenopathy - Follow-up with Oncology for further evaluation/management Updated her son, Mr. Tompkins. All questions answered to the best of my ability. Seven Reed M.D.
[2022-08-30] MEDS: CLOPIDOGREL 75 MG TABLET PO SCH (18:30)
[2022-08-30] MEDS ORDERED: NA CHLORIDE 0.9% 50 ML IV ONE (20:37)
[2022-08-30] MEDS: ENSURE CLEAR 200 ML CAN PO SCH (22:04)
[2022-08-30] MEDS: ATORVASTATIN 40 MG TAB PO SCH (22:04)
[2022-08-31 04:32] LABS: Absolute Lymphocytes (CBC) 19.5 K/uL (0.7-4.9); Hematocrit 33.4 % (36.0-45.0); Lymphocytes % 73.2 % (15.3-44.8); MCV 98.3 fL (80-100); MPV 8.3 fL (7.6-11.3)
[2022-08-31 04:49] LABS: Potassium 3.1 mmol/L (3.5-5.1)
[2022-08-31] MEDS ORDERED: POTASSIUM 25 MEQ EFFERV TAB PO ONE (05:45)
[2022-08-31] MEDS: ENSURE CLEAR 200 ML CAN PO SCH ×2 (08:45→21:00)
[2022-08-31] MEDS: ASPIRIN EC 81 MG TAB PO SCH (08:45)
[2022-08-31] MEDS: FOLIC ACID 1 MG TABLET PO SCH (08:45)
[2022-08-31] MEDS: CLOPIDOGREL 75 MG TABLET PO SCH (08:45)
[2022-08-31] MEDS ORDERED: CEFTRIAXONE 1000 MG/VIAL ONE (08:50)
[2022-08-31] MEDS: CEFTRIAXONE 1,000 MG in NA CHLORIDE 0.9% 50 ML IVPB SCH (09:00)
[2022-08-31] MEDS: NA CHLORIDE 0.9% 1,000 ML IV SCH ×3 (10:00→20:00)
--- NOTE | 2022-08-31 13:26 | P.PN ---
Subjective Date of Service: 08/31/22 Chief Complaint: Syncope; rhabdomyolysis; status post fall with facial bruising No acute events overnight. Her mental status is much improved today. She is now alert and oriented x 3. She states that her primary concern is generalized weakness. She denies any pain or discomfort. Review of Systems 10-point ROS is otherwise unremarkable General: Weakness (generalized) Physical Examination - Vital Signs Temperature: 98.1 F Blood Pressure: 116/54 Pulse: 70 Respirations: 14 Pulse Ox (%): 96 Assessment And Plan - Plan - Physical Exam General: Alert, Oriented x2 HEENT: Mucous membr. moist/pink, Other (facial contusion), EOMI, Sclerae nonicteric Neck: JVD not distended Respiratory: Clear to auscultation bilaterally, Normal air movement Cardiovascular: Normal pulses, Regular rate/rhythm, Normal S1 S2, No gallops, No rubs, No murmurs Gastrointestinal: Normal bowel sounds, Soft and benign, Non-distended, No tenderness, No rebound, No guarding Musculoskeletal: No clubbing Integumentary: No rashes Neurological: Normal speech, Normal affect, CN III-XII in tact. Decreased hearing bilaterally (chronic), 5/5 strength in BUE, LLE, 4/5 strength in RLE. No sensory deficits. NIH Stroke Scale 1a. Level of consciousness: 0 - Alert; keenly responsive 1b. LOC questions: 0 - Both questions right 1c. LOC commands: 0 - Performs both tasks 2. Best Gaze: 0 - Normal 3. Visual: 0 - No visual loss 4. Facial Palsy: 0 - Normal symmetry 5a. Motor left arm: 0 - No drift for 10 seconds 5b. Motor right arm: 0 - No drift for 10 seconds 6a. Motor left le - No drift for 5 seconds 6b. Motor right le - Drift, but doesn't hit bed 7. Limb ataxia: 0 - No ataxia 8. Sensory: 0 - Normal; no sensory loss 9. Best Language: 0 - Normal; no aphasia 10. Dysarthria: 0 - Normal 11. Extinction and Inattention: 0 - No abnormality 12. Distal motor function: 0 - No abnormality Total Score: 1 # Acute Toxic Metabolic Encephalopathy likely secondary to Gram-Negative Urinary Tract Infection and Acute/Subacute Brainstem Cerebrovascular Accident - Evaluation thus far: - Labs = Na+ 143, Ca2+ 10.0, CO2 23, Glucose 95, BUN 28, TSH pending - Urinalysis = 3+ blood, 3+ leukocyte esterase, >50 RBCs, >50 WBCs, 3+ protein - CT head = "no hemorrhage or other acute intracranial finding identifiable." - MRI brain = "punctate 1 mm sized brainstem nonhemorrhagic acute/ subacute CVA just left of midline at the medulla reddy junction. Moderate atrophy with ventricles in proportion. Mild to moderate for age scattered chronic ischemic change in the cerebral white matter." - Management plan: - Consulted Neurology and spoke with Dr. Evans - recommendations appreciated - NIHSS = 1 - q4hr neurochecks - Ordered MRA head/neck - Transthoracic echocardiogram = "1. normal left ventricular ejection fraction 60-65% with normal wall motion. 2. mild diastolic dysfunction. 3. mild tricuspid regurgitation. 4. mild to moderate aortic regurgitation" - PT/OT evaluation requested - Cardiac risk profile: - Hgb A1c = pending - Lipid panel = TC 82, TG 83, LDL 27, HDL 38 - TSH = pending - Started aspirin, atorvastatin, clopidogrel, folic acid - Continue ceftriaxone for UTI - Await cultures and sensitivities # Suspected Type II Non-ST Segment Elevation Myocardial Infarction (Demand Ischemia) - Evaluation thus far: - EKG: reportedly no STEMI criteria, trend - Serial troponin: 197.1 -> 241.0 -> 239.5 - Transthoracic echocardiogram = "1. normal left ventricular ejection fraction 60-65% with normal wall motion. 2. mild diastolic dysfunction. 3. mild tricuspid regurgitation. 4. mild to moderate aortic regurgitation" - Management plan: - Consult Cardiology - recommendations appreciated - Continue aspirin + metoprolol - Start atorvastatin - Consider starting SANDY-inhibitor/ARB if tolerated # Traumatic Ground-Level Fall with Left Scalp Hematoma # Rhabdomyolysis # Facial Contusion - CK trend: 1981 -> 926 -> 943 -> 383 - CT facial bones = "no facial bone fracture." - CT head/cervical spine/chest/abdomen/pelvis = "no hemorrhage or other acute intracranial finding identifiable. Moderate size scalp hematoma seen on the left. Facial bones, orbits and sinuses are separately detailed. Advanced degenerative changes are present involving the dens and adjacent structures but no fracture of the dens or C2 body confirmed. Overall prominent cervical spine degenerative change with no acute bone abnormality. Pathologic lymphadenopathy is present in the neck and bilateral axilla. No malignant history is known for this patient though findings are concerning for lymphoma or other neoplastic process. No acute traumatic injury to the chest. No acute traumatic injury to the abdomen or pelvis. Right-sided hydronephrosis is present without an obstructing calculus. There is a large right-sided staghorn calculus. Intermediate density material layers along the posterior or dependent portion of the urinary bladder. This could be hemorrhagic material. A mass is unlikely but not entirely excluded. Espinosa catheter is in place. Advanced degenerative changes to the spine without acute finding seen. No pelvic or proximal femur fracture." - Continue Normal Saline @ 100 mL/hr # Right-Sided Hydronephrosis with Large Right-Sided Staghorn Calculus - Urology consulted - recommendations appreciated - Renal ultrasound = "1.8 centimeter nonobstructing right renal calculus. Left renal parapelvic cysts or mild hydronephrosis unchanged." # Chronic Lymphocytic Leukemia # Neck and Bilateral Axillary Lymphadenopathy - Follow-up with Oncology for further evaluation/management Seven Reed M.D.
--- NOTE | 2022-08-31 16:01 | CON ---
Date of Consultation: 08/31/2022 Reason For Consultation: Elevated troponin. History Of Present Illness: An 86-year-old female, who was brought to the hospital after she was fou nd on the floor. She apparently had a fall and stayed on the floor face down for a prolonged period of time and then she was brought into the emergency room. She was found to have significant urinary tract infection and was very confused. Troponin was slightly elevated; however, she had mild also rh abdomyolysis. The patient is not a good historian, could not get any symptoms elicited from her. Past Medical History: As per the chart, she has history of dementia, dyslipidemia, hypertension. Medications: Refer to reconciliation sheet for detailed list. Allergies: NO KNOWN DRUG ALLERGIES. Family History: No premature coronary artery disease or cancer. Social History: She does not smoke or drink. Does not use any drugs. Review of Systems: All systems reviewed and they were negative except what mentioned in HPI. Physical Examination: Vital Signs: showed temperature is 98.1, pulse 70, breathing at 14, blood pressure 116/54, saturatin g 96% on room air. General: Pleasant elderly female, in no apparent distress. Head and Neck: Pupils are equal, reactive to light. Intact eye movements. No JVD. No cervical lym phadenopathy. Neck is supple. Thyroid is not enlarged. There are some skin abrasions on the face a nd the forehead. Lungs: Clear to auscultation bilaterally. No rhonchi, wheezing, or crackles. No accessory muscle u se. Heart: Regular rate and rhythm, however, there is an aortic systolic ejection murmur. Abdomen: Soft, nontender. Bowel sounds positive. No organomegaly. No masses or hernia. No rigidi ty or rebound. Extremities: No clubbing or cyanosis. Intact pulses. Skin: No rash or nodules. She has some skin abrasions of the face and forehead. Neurologic: She was not responding very well to perform a thorough neurological examination. Lymph Nodes: No cervical or axillary lymphadenopathy. Investigations: The troponin peaked at 241 and it is coming down; however, her CK level is also 1982 . BUN is 29, creatinine 0.43, hemoglobin is 10.9. White blood cell count is 26,000, and her urine i s full of pus, more than 50 white blood cells, and she had a brain MRI that showed a small acute infa rct in the brainstem. Assessment And Recommendations: 1.Elevated troponin. This is due to demand ischemia and may be a component of rhabdomyolysis. Echo showed normal ejection fraction, no wall motion abnormalities. No further cardiac workup is recomme nded on this matter. 2.Altered mental status with fall and syncope. This is due to the septic condition that she has and due to urinary tract infection. 3.Acute cerebrovascular accident. Echo was normal and carotid Doppler was normal. Recommend baby a spirin and high-dose statin and recommend physical therapy. 4.Sepsis due to urinary tract infection. She is on proper antibiotics. SR/MODL Voice ID: [id number] Report ID: [id number]
--- NOTE | 2022-08-31 16:14 | RAD REPORT ---
EXAM DESCRIPTION: MRI - MRA Neck W/Wo Cont - 08/31/2022 4:03 pm CLINICAL HISTORY: CVA Headache, drowsiness, CVA symptomology COMPARISON: Urinary Bladder dated 03/30/2022; Brain Wo Cont dated 08/30/2022 FINDINGS: Contrast enhance 2D [id number] MR angiography of the neck vessels was performed. A left aortic arch is noted. Normal 3 vessel origin of the great vessels noted. Both subclavian arteries and common carotid arteries are patent. No significant stenosis seen of either internal carotid artery. Antegrade flow is seen in both verteb ral arteries. IMPRESSION: No significant carotid stenosis is identified.
--- NOTE | 2022-08-31 16:16 | RAD REPORT ---
EXAM DESCRIPTION: MRI - MRA Head Wo Cont - 08/31/2022 3:59 pm CLINICAL HISTORY: CVA CVA COMPARISON: Brain Wo Cont dated 08/30/2022 FINDINGS: 3D noncontrast [id number] MR angiography of the [place] was performed. No aneurysm, flow-limiting stenosis or vascular malformation is seen. Forward flow seen in codominant vertebral arteries. The visualized dural venous sinuses appear patent. IMPRESSION: No significant flow abnormality of the [place] is identified.
--- NOTE | 2022-08-31 18:32 | P.CNS ---
Date of Consult: 08/31/22 Reason for Consult: Staghorn renal calculus Requesting Physician: Seven Reed Chief Complaint: Syncope; rhabdomyolysis; status post fall with facial bruising History of Present Illness: 86-year-old woman was found to down and somewhat obtunded after a fall at home. She was transferred to the emergency department where she has subsequently been found to have had a CVA. She denied any dysuria or gross hematuria, but she does complain of some mid lower back pain that extends up and down her spine. She denies any nausea or vomiting currently, though she notes having had some about 2 days ago. Past medical and surgical history: CLL, status post TOM and cholecystectomy, recent history of CVA No known drug allergies Examination: Extremely hard of hearing Alert and awake in no acute distress No dyspnea or sign of respiratory distress Seated in bed eating dinner Abdomen soft, nontender, nondistended. No CVA tenderness elicited Urethral Espinosa catheter in place draining clear yellow urine. CT head down through pelvis with contrast identified the presence of a large right staghorn calculus with right-sided hydronephrosis. Intermediate density material was seen layering along the posterior/dependent portion of the urinary bladder. Urethral Espinosa catheter was in place. WBC currently 26.7 down from 35.4, which is apparently near her baseline with the CLL Creatinine 0.43 08/29/2020 UA 3+ leukocyte Estrace, greater than 50 WBC per hpf, urine culture gram-negative rods Assessment and recommendation: 86-year-old woman with CLL, recent CVA, found down after a fall incidentally found to have a 4.8 cm in maximum diameter staghorn calculus involving the mid and lower pole calyces of her right kidney with mild right hydronephrosis but no RUFUS. -Given her recent CVA and likely need for antiplatelet agents as well as the size of the staghorn calculus, likely from tumor lysis associated with the CLL, the burden of her stone would necessitate consideration for right PCNL as the primary mode of treatment. While that is an invasive approach, and may be potentially significantly morbid for this woman of advanced age, the alternative includes a sandwich approach with ESWL, followed by ureteroscopy with laser lithotripsy, followed again if necessary by ESWL. -Either way, she would need to be off any anticoagulants or antiplatelet agents in preparation for the procedure and for at minimum 5 to 7 days afterwards. -In the interim, given the significant burden of stone, she would not likely be a candidate for a ureteral stent, and she would be better served with outpatient placement of a right percutaneous nephrostomy tube, unless signs of systemic illness dictate need for more emergent IR consultation and PCN tube placement. -KUB in the meantime to assess visibility of the calculi, as uric acid is likely given the CLL, and the stones may not be calcified and thus may not be visible on plain film; thus not amenable to treatment with ESWL/the sandwich approach. Allergies No Known Allergies Allergy (Unverified 08/30/22 11:52) Home Medications: Docusate Sodium [Colace] 50 mg PO DAILY 04/24/14 Hydrocodone 10/APAP 325 [[place] 10/325*] 1 tab PO Q4HP PRN 04/24/14 Pravastatin Sodium [Pravachol] 20 mg PO BEDTIME 04/24/14 Vits A,C,E/Lutein/Minerals [Ocuvite with Lutein Tablet] 1 each PO DAILY 04/24/14 methIMAzole [Tapazole] 5 mg PO DAILY 04/24/14 methocarbamoL [Robaxin*] 500 mg PO TID PRN 04/24/14 Levofloxacin [Levaquin] 500 mg PO DAILY #7 tablet 04/25/14 metroNIDAZOLE [Flagyl*] 500 mg PO Q8H #21 tablet 04/25/14 Aspirin [Aspirin EC] 81 mg PO DAILY 08/30/22 Atorvastatin Calcium [Lipitor] 40 mg PO BEDTIME 08/30/22 Folic Acid 1 mg PO DAILY 08/30/22 Pumpkin Seed Extract/Soy Germ [Azo Bladder Control Capsule] 1 tab PO BID 08/30/22 - Past Medical/Surgical History Diabetic: No -: Sciatica -: CLL -: Lumpectomy Right Breast -: Cholecystectomy -: Hysterectomy -: Left Wrist Surgery -: BARRIE knee replacement - Family History Father Family History: Reviewed- Non-Contributory - Social History Alcohol use: Yes CD- Drugs: No Caffeine use: Yes Place of Residence: Home Physical Examination Temp Pulse Resp BP Pulse Ox 97.9 F 78 14 129/58 L 97 08/31/22 16:00 08/31/22 16:00 08/31/22 16:00 08/31/22 16:00 08/31/22 16:00 - Problems (1) Hydronephrosis, right Current Visit: Yes Status: Acute (2) CLL (chronic lymphocytic leukemia) Current Visit: Yes Status: Acute (3) Staghorn calculus Current Visit: Yes Status: Acute Conclusions/Impression: See HPI
[2022-08-31] MEDS: ATORVASTATIN 40 MG TAB PO SCH (21:15)
--- NOTE | 2022-08-31 21:25 | CON ---
Reason For Consultation: Consultation called because of syncope and small stroke. History Of Present Illness: Ms. Ayers is an 86-year-old patient with CLL who comes to [facility] after she was found down by family members, perhaps around 16 hours. She lives alone and was last known to be doing well around 4:00 p.m. on Tuesday, but the next morning when she did not answe r her door to get her scheduled nails being done around 9:00 a.m. family checked on her and found her lying face down with the left arm under her. Patient did not recall what happened. She had papers strewn about her. She had significant bruising on the left face, arms, and left thigh and knee. She had a trauma series, which showed no fractures. Her CPK was elevated, consistent with rhabdomyolysi s. Her brain MRI is done on Tuesday, that is yesterday identified a possible 1 mm punctate size brain stem nonhemorrhagic stroke just left of the midline at the medulla reddy junction. There was moderate atrophy with ventricular increase in proportion. Moderate small-vessel ischemic disease also noted. MRA of her head and neck were unremarkable. Carotid artery ultrasound showed no evidence of hemody namically significant stenosis. An echocardiogram showed 60% to 65% ejection fraction, mild diastoli c dysfunction, mild tricuspid regurgitation, and mild to moderate aortic regurgitation. Since her spitalization, she is receiving fluids for her rhabdomyolysis. She has been oriented, following comm ands. Did have some mild right upper extremity weakness being noted. As noted, she has CLL and her white blood cell count has been elevated at 35,000, on , now 26,000 ; neutrophils 34%, ; lymphocytes 73.2%. Kidney function essentially shows low potassium, e levated BUN 29. Potassium was 3.1, now corrected to 4 and she did have improving creatine kinase ini tially 936, now 383. Troponins were elevated to 241, now 239. LDL cholesterol 27, HDL 38. COVID te st was negative. Urinalysis showed a urinary tract infection with 3+ esterase, 2+ blood, 2+ ketones, greater than 50 white blood cells, however, bacteria less than 20. She was treated with Rocephin fo r urinary tract infection. Past Medical History: CLL, sciatica. Past Surgical History: Right breast lumpectomy, cholecystectomy, hysterectomy, left wrist surgery, b ilateral knee replacement. Family History: Noncontributory. Allergies: NO KNOWN DRUG ALLERGIES. Home Medications: Colace 50 mg daily, [place] 10/325 every 4 hours as needed, Pravachol 20 mg at bedti me, Ocuvite 1 tab daily, Tapazole mg daily, Robaxin 500 mg 3 times daily as needed. Review of Systems: Aside from mentioned, patient denies any recent fevers or chills. She does have urinary tract infect ion in April. There is some pain and swelling in the left upper and lower extremities, left face wh ere she has a bruising. Otherwise, no psychiatric issues. No active genitourinary or gastrointestin al issues. Physical Examination: Vital Signs: Blood pressure 129/58, pulse 78, respiratory rate 14, temperature 98.1, oxygen saturati on 97%. Weight 120 pounds, height 4 feet 11 inches, BMI 24.2. General: Ms. Ayers is resting in bed. She does have some bruising noted over left cheek, left fore head, and across the chin, also in the left arm and leg and hip region. Lungs: She otherwise is clear to auscultation. Heart: Regular. Abdomen: Soft. Extremities: Mild edema in extremities. Neurological: She is alert and oriented to person, place, situation and follows commands appropriate ly. Cranial nerves show no significant focal deficits. Her motor examination mild weakness noted in the right lower extremity 3/5 distally and proximally on the right 4/5 and this is likely from the r habdomyolysis. Upper extremities, again 4/5, but unlikely to be related to rhabdomyolysis. Sensatio n intact. She does not have any extinction noted in visual field or sensory examination. NIH Stroke Scale is around 2. She will be ambulated with the physical therapist. Assessment: Ms. Ayers is an 86-year-old patient who had a small brainstem stroke. There is some ri ght-sided weakness. She fell, was found down, has rhabdomyolysis that is resolving. Urinary tract i nfection, is on antibiotics. She is on Lipitor for some dyslipidemia, aspirin 81 mg daily, and Plavi x 75 mg daily. She has folic acid 1 mg daily along with metoprolol. Plan: 1.Continue medications as noted. 2.Patient will be evaluated by Physical Therapy to see if she is a good candidate for inpatient reha bilitation. She was actually seen by the physical therapy service and it was noted that she would be nefit from aggressive physical and occupational therapy to improve her overall functioning ability. 3.It is my recommendation the patient have aggressive physical therapy at this point to help to do w ell. It should be noted that she drink actually a glass of wine daily and she should be put on folic acid 1 mg daily along with thiamine mg daily and carefully looked at for alcohol withdraw al symptoms. CASSANDRA/IDALIA Voice ID: [id number] Report ID: [id number]
[2022-09-01] MEDS: NA CHLORIDE 0.9% 1,000 ML IV SCH ×2 (00:54→06:00)
[2022-09-01] MEDS ORDERED: ONDANSETRON 4 MG/2 ML VIAL IV PRN (01:38)
[2022-09-01 05:21] LABS: Absolute Lymphocytes (CBC) 11.7 K/uL (0.7-4.9); Hematocrit 34.9 % (36.0-45.0); MCV 97.3 fL (80-100); MPV 8.1 fL (7.6-11.3); RBC Red Blood Cell Count 3.59 M/uL (3.86-4.86)
[2022-09-01 05:23] LABS: Lymphocytes % 70.9 % (15.3-44.8)
[2022-09-01 05:28] VITALS: O2SAT 96
[2022-09-01 05:45] VITALS: TEMP 97.4
[2022-09-01 05:46] LABS: Magnesium 1.8 mg/dL (1.6-2.4); Phosphorus 1.5 mg/dL (2.5-4.9); Potassium 3.7 mmol/L (3.5-5.1); Thyroid Stimulating Hormone 0.735 uIU/mL (0.358-3.740)
[2022-09-01] MEDS ORDERED: MAGNESIUM SULFATE 1 gm IVPB 1 GM/100 ML BAG IV ONE (05:52)
[2022-09-01 07:33] LABS: Specific Gravity 1.013 (1.005-1.030); Urine Bacteria None Seen /HPF (<20); Urine Bilirubin NEGATIVE (Negative); Urine Blood 3+ (OVER) (Negative); Urine Clarity Extremely Turbid (Clear); Urine Color Light-Yellow (Yellow); Urine Glucose 3+ (Negative); Urine Mucus Slight /HPF (None Seen); Urine Protein TRACE (Negative); Urine RBC >50 /HPF (None Seen); Urine Urobilinogen Normal (Normal); Urine pH 6.5 (5.0-7.0)
[2022-09-01 08:19] VITALS: BP 183/72
--- NOTE | 2022-09-01 08:54 | P.DS ---
Admission Date: 08/29/22 Discharge Date: 09/01/22 Disposition: TRANSFER TO INPATIENT REHAB Discharge Condition: GOOD Reason for Admission: Syncope; rhabdomyolysis; status post fall with facial bruising Consultations: 1. Neurology 2. Urology 3. Cardiology Hospital Course: DIAGNOSES: # Acute Toxic Metabolic Encephalopathy likely secondary to Klebsiella Oxytoca Urinary Tract Infection and Acute/Subacute Brainstem Cerebrovascular Accident (resolved) # Right-Sided Hydronephrosis with Large Right-Sided Staghorn Calculus # Suspected Type II Non-ST Segment Elevation Myocardial Infarction (Demand Ischemia) # Traumatic Ground-Level Fall with Left Scalp Hematoma # Rhabdomyolysis # Facial Contusion # Chronic Lymphocytic Leukemia # Neck and Bilateral Axillary Lymphadenopathy # Microscopic Hematuria HOSPITAL COURSE: Ms. Cesia Ayers is a pleasant 86 year old female with a past medical history significant for chronic lymphocytic leukemia who was admitted to the [facility] on 08/29/2022 for altered mental status. She was admitted to the Medicine service. Upon further evaluation, she was found to have acute toxic metabolic encephalopathy as well as rhabdomyolosis. She was treated with IV fluids, with improvement in her rhabdomyolysis. In regards to her encephalopathy, she was found to have a Klebsiella Oxytoca urinary tract infection as well as a acute/subacute brainstem cerebrovascular accident. Neurology was consulted and she was evaluated by Dr. Evans. He recommended s tarting aspirin, atorvastatin, clopidogrel, and folic acid. She was evaluated by Physical Therapy, and it was recommended that she be discharged to an inpatient rehab facility. With the assistance of case management, she was accepted to [facility]. Additionally, she was noted to have elevated troponins, so Cardiology was consulted. She was evaluated by Dr. Anders, who felt that her troponin trend was secondary to demand ischemia. He recommended continuing aspirin + atorvastatin. She was also noted to have a staghorn calculus, for which Urology was consulted. She was evaluated by Dr. Mcnulty. Dr. Mcnulty stated that she would likely need to be evaluated for a percutaneous nephrostomy tube as an outpatient once she is cleared by Neurology to hold dual-antiplatelet therapy for 5-7 days. She was also advised to follow-up with Dr. Mcnulty regarding her microscopic hematuria as this may be a sign of underlying malignancy. She verbalized understanding. Of note, her evaluation was notable for neck and bilateral axillary lymphadenopathy. These findings were concerning for a potential underlying neoplasm. She has a history of CLL and has been following with an outpatient O ncologist (Dr. Rosales). I recommended that she speak with (Dr. Rosales) regarding these findings for any additional testing. She verbalized understanding. On 09/01/2022, she was seen on morning rounds and deemed medically stable for discharge. She was discharged with instructions to schedule follow-up appointments with her PCP (Dr. Sena), with Neurology (Dr. Evans), with Oncology (Dr. Rosales), and with Urology (Dr. Mcnulty). She and her family members were given the opportunity to ask questions and reported no further questions. Furthermore, all questions were answered to the best of my ability. A copy of this discharge summary will be sent to the above providers to facilitate continuity of care. Today, I personally spent 35 minutes on her case, of which greater than 50% of the time was spent in patient education, counseling, and coordination of care as described above. - Physical Exam General: Alert, Oriented x3 HEENT: Other (facial contusion), EOMI, Sclerae nonicteric Neck: JVD not distended Respiratory: Clear to auscultation bilaterally, Normal air movement Cardiovascular: Normal pulses, Regular rate/rhythm, No gallops, No rubs, No murmurs Gastrointestinal: Normal bowel sounds, Soft and benign, Non-distended, No tenderness, No rebound, No guarding Musculoskeletal: No clubbing Integumentary: No rashes Neurological: Normal speech, Normal affect, CN III-XII in tact. Decreased hearing bilaterally (chronic), 5/5 strength in BUE, LLE, 4/5 strength in RLE. No sensory deficits. NIH Stroke Scale 1a. Level of consciousness: 0 - Alert; keenly responsive 1b. LOC questions: 0 - Both questions right 1c. LOC commands: 0 - Performs both tasks 2. Best Gaze: 0 - Normal 3. Visual: 0 - No visual loss 4. Facial Palsy: 0 - Normal symmetry 5a. Motor left arm: 0 - No drift for 10 seconds 5b. Motor right arm: 0 - No drift for 10 seconds 6a. Motor left le - No drift for 5 seconds 6b. Motor right le - Drift, but doesn't hit bed 7. Limb ataxia: 0 - No ataxia 8. Sensory: 0 - Normal; no sensory loss 9. Best Language: 0 - Normal; no aphasia 10. Dysarthria: 0 - Normal 11. Extinction and Inattention: 0 - No abnormality 12. Distal motor function: 0 - No abnormality Total Score: 1 Vital Signs/Physical Exam: Temp Pulse Resp BP Pulse Ox 97.4 F 73 18 183/72 H 95 09/01/22 08:00 09/01/22 08:00 09/01/22 08:00 09/01/22 08:00 09/01/22 08:00 Laboratory Data at Discharge: WBC 16.50 K/uL (4.3-10.9) H 09/01/22 05:02 Hgb 11.6 g/dL (12.0-15.0) L 09/01/22 05:02 Hct 34.9 % (36.0-45.0) L 09/01/22 05:02 Plt Count 132 K/uL (152-406) L 09/01/22 05:02 PT 12.6 SECONDS (9.5-12.5) H 08/29/22 11:41 INR 1.15 08/29/22 11:41 Sodium 141 mmol/L (136-145) 09/01/22 05:02 Potassium 3.7 mmol/L (3.5-5.1) 09/01/22 05:02 BUN 20 mg/dL (7-18) H 09/01/22 05:02 Creatinine 0.42 mg/dL (0.55-1.02) L 09/01/22 05:02 Glucose 165 mg/dL (74-106) H 09/01/22 05:02 Phosphorus 1.5 mg/dL (2.5-4.9) L 09/01/22 05:02 Magnesium 1.8 mg/dL (1.6-2.4) 09/01/22 05:02 Total Bilirubin 1.4 mg/dL (0.2-1.0) H 08/30/22 06:47 AST 103 U/L (15-37) H 08/30/22 06:47 ALT 55 U/L (13-56) 08/30/22 06:47 Alkaline Phosphatase 89 U/L (45-117) 08/30/22 06:47 Triglycerides 83 mg/dL (<150) 08/30/22 06:13 Cholesterol 82 mg/dL (<200) 08/30/22 06:13 HDL Cholesterol 38 mg/dL (40-60) L 08/30/22 06:13 Cholesterol/HDL Ratio 2.16 08/30/22 06:13 Home Medications: Docusate Sodium [Colace] 50 mg PO DAILY 04/24/14 Hydrocodone 10/APAP 325 [[place] 10/325*] 1 tab PO Q4HP PRN 04/24/14 Pravastatin Sodium [Pravachol] 20 mg PO BEDTIME 04/24/14 Vits A,C,E/Lutein/Minerals [Ocuvite with Lutein Tablet] 1 each PO DAILY 04/24/14 methIMAzole [Tapazole] 5 mg PO DAILY 04/24/14 methocarbamoL [Robaxin*] 500 mg PO TID PRN 04/24/14 Levofloxacin [Levaquin] 500 mg PO DAILY #7 tablet 04/25/14 Aspirin [Aspirin EC] 81 mg PO DAILY 08/30/22 Atorvastatin Calcium [Lipitor] 40 mg PO BEDTIME 08/30/22 Folic Acid 1 mg PO DAILY 08/30/22 Pumpkin Seed Extract/Soy Germ [Azo Bladder Control Capsule] 1 tab PO BID 08/30/22 Aspirin Chewable [Aspirin Chewable*] 81 mg PO DAILY #1 tab.chew 09/01/22 Atorvastatin Calcium [Lipitor] 40 mg PO BEDTIME tab 09/01/22 Cefdinir [Cefdinir*] 300 mg PO BID 10 Days #20 cap 09/01/22 Clopidogrel Bisulfate [Plavix*] 75 mg PO DAILY 09/01/22 New Medications: Aspirin Chewable [Aspirin Chewable*] 81 mg PO DAILY #1 tab.chew Cefdinir [Cefdinir*] 300 mg PO BID 10 Days #20 cap Physician Discharge Instructions: Once discharged from inpatient rehab: - Please call and schedule a follow-up appointment with your PCP (Dr. Sena) - Please call and schedule a follow-up appointment with Neurology (Dr. Evans) - Please call and schedule a follow-up appointment with Urology (Dr. Mcnulty) - He will discuss the possibility of a procedure to place a tube to drain your right kidney - Please call and schedule a follow-up appointment with your Oncologist (Dr. Rosales) - You will need to discuss management of the swollen lymph nodes in your chest Diet: AHA Activity: Fall precautions Followup: Javier Snea MD [Primary Care Provider] - (Please call to schedule as appointment once discharged from rehab.) Torito Evans MD [ASSOCIATE-ACTIVE - CAN ADMIT] - (Please call to schedule an appointment once discharge from rehab.) Jean Claude Mcnulty [ACTIVE - CAN ADMIT] - (Please call to schedule an appointment once discharged from rehab.) Ivanna Guevara MD [ACTIVE - CAN ADMIT] - Time spent managing pt's care (in minutes): 35
[2022-09-01] MEDS ORDERED: POTASSIUM 25 MEQ EFFERV TAB PO ONE (09:00)
[2022-09-01] MEDS: ENSURE CLEAR 200 ML CAN PO SCH (09:00)
[2022-09-01] MEDS: CEFTRIAXONE 1,000 MG in NA CHLORIDE 0.9% 50 ML IVPB SCH (09:51)
[2022-09-01] MEDS: POTASS/SODIUM PHOSPHATE 1 PKT POWD.PACK PO SCH ×2 (09:52→09:53)
[2022-09-01] MEDS: ASPIRIN EC 81 MG TAB PO SCH (09:53)
[2022-09-01] MEDS: CLOPIDOGREL 75 MG TABLET PO SCH (09:53)
[2022-09-01] MEDS: FOLIC ACID 1 MG TABLET PO SCH (09:54)
--- NOTE | 2022-09-01 14:03 | EKG ---
Test Date: 2022-08-29 Test Time: 11:56:34 [employer] Technical Officer: BOO MEASUREMENT RESULTS: Intervals: Rate: 88 MA: 122 QRSD: 116 QT: 392 QTc: 474 Ten Sleep: P: 65 MA: 122 QRS: -72 T: 68 INTERPRETIVE STATEMENTS: Normal sinus rhythm Left axis deviation Incomplete left bundle branch block Abnormal ECG Compared to ECG 04/24/2014 00:06:16 Left-axis deviation now present Left bundle-branch block now present Sinus tachycardia no longer present ST (T wave) deviation no longer present Possible ischemia no longer present Prolonged QT interval no longer present Electronically Signed On 09-01-22 14:00:35 FACILITY REHAB DIRECTOR by Andres Anders
== END 2022-09-01 11:43 | DRG 64 ==
LOC: ER 11:19 → ERHOLD 17:14 → 2ND 18:35
PROVIDERS: ADMIT Hospitalist; ATTEND Internal Medicine
DX: I63.9 Cerebral infarction, unspecified (principal); G92.8 Other toxic encephalopathy; I21.A1 Myocardial infarction type 2; G81.91 Hemiplegia, unspecified affecting right dominant side; C91.10 Chronic lymphocytic leukemia of B-cell type not having achieved remission; M62.82 Rhabdomyolysis; N13.2 Hydronephrosis with renal and ureteral calculous obstruction; N39.0 Urinary tract infection, site not specified; E05.90 Thyrotoxicosis, unspecified without thyrotoxic crisis or storm; S00.03XA Contusion of scalp, initial encounter; W19.XXXA Unspecified fall, initial encounter; I10 Essential (primary) hypertension; R55 Syncope and collapse
CPT/HCPCS: 36415; 51702; 70450; 70486; 70544; 70549; 70551; 71260; 72125; 74177; 76377; 76770; 80048; 80053; 80061; 81001; 81003; 81015; 82550; 82565; 83036; 83605; 83735; 84100; 84132; 84443; 84484; 85025; 85610; 86850; 86900; 86901; 87077; 87086; 87088; 87186; 87811; 93005; 93306; 93880; 96360; 96361; 97112; 97161; 97530; 99291; 99292; A9577; J1650; J2405; J3475; J7030; J7042; Q9967